=== PATIENT | male | born 1955 | race Caucasian/White ===

== ENCOUNTER 2017-11-25 12:45 | Inpatient (IN) | payer OTHER, BC ==
--- NOTE | 2017-11-25 13:03 | PDOC ---
History of Present Illness - General Chief Complaint: Chest Pain Stated Complaint: CHEST PAIN Time Seen by Provider: 11/25/17 13:02 History Source: Patient Exam Limitations: No Limitations - History of Present Illness Initial Comments: 11/25/17 14:10 62 YOM, with a significant past medical history of CAD, [place] (s/p multiple PCI ( [place], [facility]) on ASA and plavix), HTN, HLD, and neuropathy, who presents to the emergency department with, 6 days left sided chest pain. He describes his chest pain as pleuritic, achy, radiating to the left arm, ranking 8/10 with associated shortness of breath, nausea, and belching. He notes using his nitroglycerin spray each day with a 3 hour relief of the pain. The patient reports his symptoms to be similar to his previous episodes of a [place] which required hospitalization and stenting. He denies any palpitations, weakness, or tingling. He denies any recent fevers, chills, headache or dizziness. He denies any recent vomit, diarrhea or constipation. He denies any recent dysuria, frequency, urgency or hematuria. Allergies: Penicillin, cephalosporins, oxycodone HCl, Sulfa antibiotics, tetracyclines. Past surgical history: Cardiac stenting. Social History: Nonsmoker. Denies EtOH use and recreational drug use. Primary Care Physician: Dr. Selby [employer] Servicer Helper: Dr. Goldberg 11/25/17 15:18 Past History - Past Medical History Allergies/Adverse Reactions: Allergies Allergy/AdvReac Type Severity Reaction Status Date / Time Penicillins Allergy Severe Anaphylaxis Verified 11/25/17 14:01 Sulfa (Sulfonamide Allergy Severe Rash Verified 11/25/17 14:01 Antibiotics) Cephalosporins Allergy Verified 11/25/17 14:01 oxycodone HCl [From Percocet] Allergy Verified 11/25/17 14:01 Tetracyclines Allergy Verified 11/25/17 14:01 Home Medications: Ambulatory Orders Aspirin 325 mg PO DAILY tablet 09/03/13 Atorvastatin Calcium 40 mg PO DAILY tablet 09/03/13 Clopidogrel Bisulfate [Plavix] 75 mg PO DAILY #0 tablet 09/03/13 Isosorbide Mononitrate 90 mg PO DAILY 09/03/13 Ranolazine [Ranexa] 500 mg PO BID 08/09/14 Nitroglycerin [place] [Nitrolingual [place] -] 1 spray TL PRN PRN 11/25/17 Cancer: Yes (CAD) Cardiac Disorders: ([place] 02/05/13 WITH STENT) COPD: No GI Disorders: Yes (RECTAL MASS, CROHN'S) HTN: Yes - Surgical History Abdominal Surgery: Yes (RESECTION) Appendectomy: Yes Cardiac Surgery: Yes (CARDIAC CATH) - Immunization History Td Vaccination: Yes Immunization Up to Date: Yes - Suicide/Smoking/Psychosocial Hx Smoking Status: Yes Smoking History: Never smoked Have you smoked in the past 12 months: Yes Number of Cigarettes Smoked Daily: 10 If you are a former smoker, when did you quit?: FOUR MONTHS AGO Information on smoking cessation initiated: No Hx Alcohol Use: No Drug/Substance Use Hx: No Substance Use Type: None Review of Systems - Review of Systems Able to Perform ROS?: Yes Comments:: 11/25/17 14:10 Constitutional: no fevers or chills. HEENT: no headache or dizziness. CVS: +Chest pain. no syncope. Resp: +SOB. no cough or congestion. Abdomen: no abdominal pain, nausea or vomiting. MUSCULOSKELETAL: No joint pain and swelling. No neck or back pain. no leg swelling. SKIN: no redness or skin changes, no discharge, no rash. Hematologic: no easy bruising/bleeding. NEUROLOGIC: No headache, dizziness, LOC or altered mental status. No weakness, numbness or tingling. All other systems reviewed and negative, or as documented in HPI. *Physical Exam - Vital Signs Last Vital Signs Temp Pulse Resp BP Pulse Ox 97.8 F 68 14 108/69 98 11/25/17 12:48 11/25/17 14:18 11/25/17 14:18 11/25/17 14:18 11/25/17 14:18 - Physical Exam Comments: 11/25/17 14:11 General: Well appearing, awake and alert, NAD. HEENT: NCAT, PERRL, EOMI, clear conjunctiva, anicteric, moist mucous membranes , clear oropharynx, no oral lesions.. Neck: No JVD. neck supple, FROM Resp: CTAB, normal and even respirations, no respiratory distress CVS: RRR, no murmurs, 2+ peripheral pulses throughout, no peripheral edema Abdomen: soft, NTND, no peritoneal signs. Back: nontender, normal inspection and ROM MSK: no edema, DIOP x4, ROM intact. No clubbing or cyanosis. normal bulk and tone. Neuro: alert, oriented appropriately; no focal neurologic deficits Skin: warm and well perfused, cap refill <2 sec, normal color Heart Score/ECG Review - History History: Moderately suspicious - Electrocardiogram EKG: Normal - Age Age: 45-65 - Risk Factors Risk Factors Heart Score: Yes Hx Hypercholesterolemia, Yes Hx Hypertension, Yes Hx Obesity Based on the list above the patient has:: >/=3 risk factors or Hx atherosclerotic disease - Troponin Troponin: </= normal limit - Score Heart Score - Total: 4 - ECG Impressions Comment:: 11/25/17 13:59 EKG normal sinus rhythm, no interval abnormalities, narrow QRS, ST and T wave segments and morphology normal. Nonspecific T wave abnormalities in inferior leads, no depressions or elevations. ED Treatment Course - LABORATORY CBC & Chemistry Diagram: 11/25/17 13:15 11/25/17 13:40 - ADDITIONAL ORDERS Additional order review: Laboratory Results 11/25/17 11/25/17 13:40 13:40 PT with INR 12.70 INR 1.08 Sodium 139 Potassium 4.2 Chloride 106 Carbon Dioxide 27 Anion Gap 7 L BUN 17 Creatinine 0.9 Creat Clearance w eGFR > 60 Random Glucose 97 Calcium 8.6 Total Bilirubin 0.6 AST 17 ALT 26 Alkaline Phosphatase 100 Troponin I < 0.02 B-Natriuretic Peptide 42.8 Total Protein 6.4 Albumin 3.6 11/25/17 13:15 RBC 4.83 MCV 84.4 MCHC 32.8 RDW 13.7 MPV 8.6 Neutrophils % 55.5 Lymphocytes % 32.8 Monocytes % 9.3 Eosinophils % 1.9 Basophils % 0.5 - Medications Given in the ED: ED Medications Discontinued Medications Generic Name Dose Route Start Last Admin Trade Name Freq PRN Reason Stop Dose Admin Aspirin 324 mg 11/25/17 13:54 11/25/17 14:05 Asa - PO 11/25/17 13:55 324 mg ONCE ONE Administration Heparin Sodium (Porcine) 5,000 unit 11/25/17 14:14 11/25/17 14:45 Heparin - IVPUSH 11/25/17 14:15 5,000 unit ONCE ONE Administration Nitroglycerin 0.4 mg 11/25/17 13:54 11/25/17 14:05 Nitrostat - SL 11/25/17 13:55 0.4 mg ONCE ONE Administration Medical Decision Making - Medical Decision Making 11/25/17 13:57 Lopin 62 YOM with h/o CAD/[place] s/p multiple PCI ([place], [facility]) on ASA and plavix, HTN, HLD, neuropathy presenting with worsening left sided chest pain x 6 days, radiating to left arm. Started with feeling weak and unsteady. CP Nonexertional, alleviated by nitro spray. Compliant with meds including ASA and plavix. DDx chest pain: ACS, unstable angina, PUD, esophageal spasm, GERD, gastritis, costochondritis, pneumonia, pleurisy, pericarditis/myocarditis. dehydration, electrolyte/metabolic derangements. Vital signs reviewed, wnl. 10/04 chest pain, given nitro and ASA 325mg x1. laboratory results and imaging reviewed, basic labs and lytes wnl. higher risk CP with multiple PCI and recurrent anginal equiv symptoms. trop and bnp negative. EKG normal sinus rhythm, no interval abnormalities, narrow QRS, ST and T wave segments and morphology normal. Nonspecific T wave abnormalities in inferior leads, no depressions or elevations. - Spoke with Dr. Muir, content designer cards for Dr Yadav. agree with plan, treat as unstable angina, Heparin bolus and gtt. Dispo: Admit for unstable angina, serial trops/EKG and tele monitoring. Cardiac Cath to be arranged for tomorrow at [facility]. Discussed results and management plan with pt and family member at bedside, agree with impression and plan admit to Dr. Sola murphy PMD. 11/25/17 15:19 *DC/Admit/Observation/Transfer Diagnosis at time of Disposition: Chest pain - Discharge Dispostion Condition at time of disposition: Good Decision to Admit order: Yes Decision to Admit order Date/Time: Decision to Admit Order Category Date Time Status Decision to Admit to Hospital Routine Admission 11/25/17 13:55 Active - Referrals Referrals: Leo Selby MD [Primary Care Provider] - - Patient Instructions - Post Discharge Activity - Attestations Physician Attestion: 11/25/17 13:57
--- NOTE | 2017-11-25 13:33 | CON.CARD ---
Consult Consult Specialty:: Cardiology Referred by:: ER Reason for Consultation:: chest pain - History of Present Illness Chief Complaint: chest pain History of Present Illness: 62 year old man with a history of HTN, HLD, CAD s/p AWMI 01/2013 s/p PCI [place] followed by PCI LPDA 02/2013 at [facility], Chronic combined systolic/diastolic CHF , depression, anxiety, past smoker, with chronic angina, dyspnea, lightheadedness, has had multiple caths since then with instent restenosis and PCI at [facility] with Dr. Mariscal (last 2016 unknown vessel), who has been having several days of chest pain at rest relieved with nitrolingual spray. No palpitations or syncope. His pain is pressure like without radiation. Generally good exercise tolerance. ECHO 07/30/17 Interpretation Summary Acoustic windows are overall adequate. Normal left atrial size. Normal left ventricular size. Normal left ventricular ejection fraction. Estimated ejection fraction: 60 % Normal right atrial size. Normal right ventricular size. Normal right ventricular function. 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 Normal mitral valve. Minimal mitral valve regurgitation. Normal tricuspid valve. Minimal tricuspid valve regurgitation. Normal pulmonic valve. Normal sized aortic root. No pericardial effusion. Doppler pattern suggests prolonged relaxation and normal left atrial pressure (8 - 14mmHg). Event Monitor (07/31/17 to 08/06/2017): Normal sinus rhythm with an average heart rate of 64 BPM (1% in tachycardia and 40% in bradycardia). Occasional APCs and VPCs. No pauses. No other cardiac arrhythmia noted. The patient was monitored for 167:32 hours, of which 164:03 hours were usable. Average heart rate for the monitored period was 64 BPM. Tachycardia was present for 1% of the readable data; Bradycardia was present for 40% of the readable data. No Pause(s) noted of 3 seconds or longer. 10 manually-triggered recording(s) posted with symptoms including Chest pain, Other. The patient triggered events correlated with normal sinus rhythm and APCs. Holter 07/30/1707/12/2017 (24:00 hours recorded, 22:12 hours analyzed): Normal sinus rhythm with an average heart rate of 68 BPM (51-103 BPM). Occasional APCs. No significant pauses. No significant arrhythmias were recorded. 03/03/13 [facility] Cardiac catherization findings: LM non-obstructive, patent stent pLAD, mLAD 40%, LCX/ LPDA 70%lesion, FFR 0.87, IVUS 3.47m2 and 70% Stenosis, RCA non obstructive. Successful PCI of LPDA with 3.5x15 posts dilated with 3.75x12 with very good angiographic result. Ventriculogram:Apical hypokinesis otherwise, no regional wall motion. EF 55% - History Source History Provided By: Patient, Medical Record - Past Medical History Cardio/Vascular: Yes: CAD, HTN, Hyperlipdemia, [place], Other (s/p stent placement 3 weeks prior) - Alcohol/Substance Use Hx Alcohol Use: No - Smoking History Smoking history: Never smoked Have you smoked in the past 12 months: Yes Aproximately how many cigarettes per day: 10 If you are a former smoker, when did you quit?: FOUR MONTHS AGO Home Medications - Allergies Allergies/Adverse Reactions: Allergies Allergy/AdvReac Type Severity Reaction Status Date / Time Penicillins Allergy Severe Anaphylaxis Verified 11/25/17 14:01 Sulfa (Sulfonamide Allergy Severe Rash Verified 11/25/17 14:01 Antibiotics) Cephalosporins Allergy Verified 11/25/17 14:01 oxycodone HCl [From Percocet] Allergy Verified 11/25/17 14:01 Tetracyclines Allergy Verified 11/25/17 14:01 - Home Medications Home Medications: Ambulatory Orders Aspirin 325 mg PO DAILY tablet 09/03/13 Atorvastatin Calcium 40 mg PO DAILY tablet 09/03/13 Clopidogrel Bisulfate [Plavix] 75 mg PO DAILY #0 tablet 09/03/13 Isosorbide Mononitrate 90 mg PO DAILY 09/03/13 Ranolazine [Ranexa] 500 mg PO BID 08/09/14 Nitroglycerin [place] [Nitrolingual [place] -] 1 spray TL PRN PRN 11/25/17 Review of Systems - Review of Systems Constitutional: reports: No Symptoms Eyes: reports: No Symptoms HENT: reports: No Symptoms Neck: reports: No Symptoms Cardiovascular: reports: Chest Pain Respiratory: reports: No Symptoms Gastrointestinal: reports: No Symptoms Genitourinary: reports: No Symptoms Vital Signs: Vital Signs Temperature 97.8 F 11/25/17 12:48 Pulse Rate 84 11/25/17 12:48 Respiratory Rate 20 11/25/17 12:48 Blood Pressure 164/100 11/25/17 12:48 O2 Sat by Pulse Oximetry (%) 100 11/25/17 12:48 Constitutional: Yes: Well Nourished, No Distress, Calm Eyes: Yes: Conjunctiva Clear, EOM Intact HENT: Yes: Atraumatic, Normocephalic Neck: Yes: Supple, Trachea Midline Respiratory: Yes: CTA Bilaterally Gastrointestinal: Yes: Normal Bowel Sounds, Soft Renal/: Yes: WNL Cardiovascular: Yes: Regular Rate and Rhythm JVD: No Carotid Bruit: No PMI: Non-Displaced Heart Sounds: Yes: S1, S2 Musculoskeletal: Yes: WNL Extremities: Yes: WNL Edema: No Peripheral Pulses WNL: Yes Imaging - Results Chest X-ray: Pending EKG: Report Reviewed Assessment/Plan 62 year old man with a history of HTN, HLD, CAD s/p AWMI 01/2013 s/p PCI [place] followed by PCI LPDA 02/2013 at [facility], Chronic combined systolic/diastolic CHF , depression, anxiety, past smoker, with chronic angina, dyspnea, lightheadedness, has had multiple caths since then with instent restenosis and PCI at [facility] with Dr. Mariscal (last 2016 unknown vessel), who has been having several days of chest pain at rest relieved with nitrolingual spray. No palpitations or syncope. His pain is pressure like without radiation. 1. Unstable angina -- plan is for transfer tomorrow to [facility] for cardiac cath possible PCI. -start IV heparin follow PTT. -continue asa, plavix, imdur, ranexa and metoprolol 2. HTN- continue home medications. 3. chol--continue statin 4. CHF--resolved now normal EF at last echo.
[2017-11-25] MEDS ORDERED: ASPIRIN 81 MG CHEWABLE TABLETS PO ONE (13:54)
[2017-11-25] MEDS ORDERED: NITROGLYCERIN SUBLINGUAL 1/150 0.4 MG TAB SL ONE ×2 (13:54→20:08)
[2017-11-25 13:57] LABS: BASO % 0.5 % (0-2.0); EOS % 1.9 % (0-4.5); HEMATOCRIT 40.7 % (35.4-49); HEMOGLOBIN 13.3 GM/dL (11.7-16.9); LYMPH % 32.8 % (8-40); MCH 27.6 pg (25.7-33.7); MCHC 32.8 g/dl (32.0-35.9); MEAN CELL VOLUME 84.4 fl (80-96); MEAN PLT VOLUME 8.6 fl (7.5-11.1); MONO % 9.3 % (3.8-10.2); NEUT % 55.5 % (42.8-82.8); PLATELET COUNT 114 K/MM3 (134-434); RBC 4.83 M/mm3 (4.00-5.60); RDW 13.7 % (11.9-15.9); WHITE BLOOD COUNT 4.6 K/mm3 (4.0-10.0)
[2017-11-25] MEDS ORDERED: ASPIRIN 325 MG TABLET ONE (14:02)
[2017-11-25] MEDS ORDERED: NITROGLYCERIN SUBLINGUAL 1/150 0.4 MG TAB ONE (14:02)
[2017-11-25 14:11] LABS: INR 1.08 (0.83-1.09); PROTHROMBIN TIME (PATIENT) 12.7 SEC (9.7-13.0)
[2017-11-25] MEDS ORDERED: HEPARIN NA (PORCINE) 5,000 UNITS/ML 1ML VIAL IVPUSH ONE (14:14)
[2017-11-25] MEDS ORDERED: HEPARIN INFUSION - 500 ML IVPB SCH (14:15)
[2017-11-25] MEDS ORDERED: HEPARIN NA (PORCINE) 5,000 UNITS/ML 1ML VIAL ONE (14:28)
[2017-11-25] MEDS ORDERED: HEPARIN INFUSION - 25,000 UNITS/500 ML INFUS.BAG IVPB ONE (14:28)
[2017-11-25 14:36] LABS: ALBUMIN 3.6 g/dl (3.4-5.0); ALK PHOS 100 U/L (45-117); ANION GAP 7 MMOL/L (8-16); BILIRUBIN,TOTAL 0.6 mg/dL (0.2-1); BLOOD UREA NITROGEN 17 mg/dL (7-18); CALCIUM 8.6 mg/dL (8.5-10.1); CHLORIDE 106 mmol/L (98-107); CO2 27 mmol/L (21-32); CREATININE 0.9 mg/dL (0.55-1.3); GLUCOSE,RANDOM 97 mg/dL (74-106); N-TERMINAL BNP 42.8 pg/ml (5-125); POTASSIUM 4.2 mmol/L (3.5-5.1); SGOT/AST 17 U/L (15-37); SGPT/ALT 26 U/L (13-61); SODIUM 139 mmol/L (136-145); TOT PROT 6.4 g/dl (6.4-8.2)
[2017-11-25] MEDS ORDERED: HEPARIN - 25,000 UNIT in SODIUM CHLORIDE 495 ML IV ONE (14:45)
--- NOTE | 2017-11-25 15:42 | HP ---
CHIEF COMPLAINT: Chest pain PCP: Dr. Selby HISTORY OF PRESENT ILLNESS: 62 year-old man with a PMH significant for HTN, HLD, CAD s/p AWMI 01/2013 s/p PCI [place] followed by PCI LPDA 02/2013 at [facility], systolic/diastolic heart failure , chronic angina, depression, and anxiety. Presented to the ED today with a complaint of chest pain x 6 days. The pain occurs at rest, is pressure-like, does not radiate, and is relieved with nitrolingual spray. No palpitations or syncope. ER course was notable for: (1) BP 164/100 (2) Trop neg x 1 Recent Travel: No PAST MEDICAL HISTORY: Hypertension Hyperlipidemia Coronary artery disease s/p AWMI 01/2013 Systolic/diastolic heart failure Angina Depression/anxiety PAST SURGICAL HISTORY: Cardiac stenting (2013, [facility]; 2015, [facility]) Social History: Smoking: former Alcohol: no Drugs: no Family History: Allergies Penicillins Allergy (Severe, Verified 11/25/17 14:01) Anaphylaxis Sulfa (Sulfonamide Antibiotics) Allergy (Severe, Verified 11/25/17 14:01) Rash Cephalosporins Allergy (Verified 11/25/17 14:01) oxycodone HCl [From Percocet] Allergy (Verified 11/25/17 14:01) Tetracyclines Allergy (Verified 11/25/17 14:01) HOME MEDICATIONS: Home Medications Medication Instructions Recorded Aspirin 325 mg PO DAILY tablet 09/03/13 Atorvastatin Calcium 40 mg PO DAILY tablet 09/03/13 Clopidogrel Bisulfate [Plavix] 75 mg PO DAILY #0 tablet 09/03/13 Isosorbide Mononitrate 90 mg PO DAILY 09/03/13 Ranolazine [Ranexa] 500 mg PO BID 08/09/14 Metoprolol Succinate [Toprol Xl] 50 mg PO BID 11/25/17 Nitroglycerin [place] [Nitrolingual 1 spray TL PRN PRN 11/25/17 [place] -] REVIEW OF SYSTEMS CONSTITUTIONAL: Absent: fever, chills, diaphoresis, generalized weakness, malaise, loss of appetite, weight change HEENT: Absent: rhinorrhea, nasal congestion, throat pain, throat swelling, difficulty swallowing, mouth swelling, ear pain, eye pain, visual changes CARDIOVASCULAR: +chest pain at rest, SOB Absent: syncope, palpitations, irregular heart rate, lightheadedness, peripheral edema RESPIRATORY: Absent: cough, shortness of breath, dyspnea with exertion, orthopnea, wheezing, stridor, hemoptysis GASTROINTESTINAL: Absent: abdominal pain, abdominal distension, nausea, vomiting, diarrhea, constipation, melena, hematochezia GENITOURINARY: Absent: dysuria, frequency, urgency, hesitancy, hematuria, flank pain, genital pain MUSCULOSKELETAL: Absent: myalgia, arthralgia, joint swelling, back pain, neck pain SKIN: Absent: rash, itching, pallor HEMATOLOGIC/IMMUNOLOGIC: Absent: easy bleeding, easy bruising, lymphadenopathy, frequent infections ENDOCRINE: Absent: unexplained weight gain, unexplained weight loss, heat intolerance, cold intolerance NEUROLOGIC: Absent: headache, focal weakness or paresthesias, dizziness, unsteady gait, seizure, mental status changes, bladder or bowel incontinence PSYCHIATRIC: Absent: anxiety, depression, suicidal or homicidal ideation, hallucinations. PHYSICAL EXAMINATION Vital Signs - 24 hr 11/25/17 11/25/17 12:48 14:18 Temperature 97.8 F Pulse Rate 84 Pulse Rate [ 68 Apical] Respiratory 20 14 Rate Blood Pressure 164/100 Blood Pressure 108/69 [Right Arm] O2 Sat by Pulse 100 98 Oximetry (%) GENERAL: Awake, alert, and fully oriented, in no acute distress. HEAD: Normal with no signs of trauma. EYES: Pupils equal, round and reactive to light, extraocular movements intact, sclera anicteric, conjunctiva clear. No lid lag. EARS, NOSE, THROAT: Ears normal, nares patent, oropharynx clear without exudates. Moist mucous membranes. NECK: Normal range of motion, supple without lymphadenopathy, JVD, or masses. LUNGS: Breath sounds equal, clear to auscultation bilaterally. No wheezes, and no crackles. No accessory muscle use. HEART: Regular rate and rhythm, normal S1 and S2 ABDOMEN: Soft, nontender, not distended, normoactive bowel sounds, no guarding, no rebound UPPER EXTREMITIES: 2+ pulses, warm, well-perfused. No cyanosis. No clubbing. No peripheral edema. LOWER EXTREMITIES: 2+ pulses, warm, well-perfused. No calf tenderness. No peripheral edema. NEUROLOGICAL: Cranial nerves II-XII intact. Normal speech. Laboratory Results - last 24 hr 11/25/17 11/25/17 11/25/17 13:15 13:40 13:40 WBC 4.6 RBC 4.83 Hgb 13.3 Hct 40.7 MCV 84.4 MCH 27.6 MCHC 32.8 RDW 13.7 Plt Count 114 L MPV 8.6 Absolute Neuts (auto) 2.5 Neutrophils % 55.5 Lymphocytes % 32.8 Monocytes % 9.3 Eosinophils % 1.9 Basophils % 0.5 Nucleated RBC % 0 PT with INR 12.70 INR 1.08 Sodium 139 Potassium 4.2 Chloride 106 Carbon Dioxide 27 Anion Gap 7 L BUN 17 Creatinine 0.9 Creat Clearance w eGFR > 60 Random Glucose 97 Calcium 8.6 Total Bilirubin 0.6 AST 17 ALT 26 Alkaline Phosphatase 100 Troponin I < 0.02 B-Natriuretic Peptide 42.8 Total Protein 6.4 Albumin 3.6 ASSESSMENT/PLAN 62 year-old man with a PMH significant for HTN, HLD, CAD s/p AWMI 01/2013 s/p PCI [place] followed by PCI LPDA 02/2013 at [facility], systolic/diastolic heart failure , chronic angina, depression, and anxiety. Presented to the ED today with a complaint of chest pain x 6 days. Placed on observation for unstable angina. Unstable angina CAD s/p multiple stents --troponins neg x 2, third pending --seen and evaluated by cardiology Dr. Muir, plan is to transfer tomorrow for cardiac cath --heparin drip --continue ASA, Plavix, Imdur, Ranexa, Toprol XL Hypertension --continue ToprolXL Hyperlipidemia --continue atorvastatin Systolic and diastolic heart failure, resolved --per Dr. Muir, normal EF at last echo Depression/anxiety --not on meds DVT prophylaxis: on heparin drip, monitor PTT Visit type - Emergency Visit Emergency Visit: Yes ED Registration Date: 11/25/17 Care time: The patient presented to the Emergency Department on the above date and was hospitalized for further evaluation of their emergent condition. - New Patient This patient is new to me today: Yes Date on this admission: 11/25/17 - Critical Care Critical Care patient: No
[2017-11-25] MEDS ORDERED: HEPARIN INFUSION - 25,000 UNITS/500 ML INFUS.BAG IVPB SCH ×2 (20:00→20:45)
[2017-11-25] MEDS ORDERED: HEPARIN NA (PORCINE) 5,000 UNITS/ML 1ML VIAL IVPUSH PRN ×2 (20:00)
[2017-11-25] MEDS ORDERED: NITROGLYCERIN SUBLINGUAL 1/150 0.4 MG TAB SL STA (20:19)
[2017-11-25] MEDS ORDERED: ATORVASTATIN CA 40 MG TABLET (FP) PO SCH (22:00)
[2017-11-25] MEDS ORDERED: GABAPENTIN 100 MG CAPSULE (FP) ONE (23:29)
[2017-11-25] MEDS ORDERED: ATORVASTATIN CA 40 MG TABLET (FP) ONE (23:29)
[2017-11-25] MEDS: RANOLAZINE E.R. 500 MG TABLET (FP) PO SCH (23:47)
[2017-11-25] MEDS: GABAPENTIN 300 MG CAPSULE (FP) PO SCH (23:47)
[2017-11-26 03:59] VITALS: BMI 34.7
[2017-11-26] MEDS: GABAPENTIN 300 MG CAPSULE (FP) PO SCH (06:10)
[2017-11-26] MEDS ORDERED: PANTOPRAZOLE 40 MG TABLET (FP) PO SCH (07:00)
[2017-11-26 07:11] LABS: BASO % 0.4 % (0-2.0); EOS % 1.6 % (0-4.5); HEMATOCRIT 40.2 % (35.4-49); HEMOGLOBIN 13.3 GM/dL (11.7-16.9); LYMPH % 32.7 % (8-40); MCH 27.9 pg (25.7-33.7); MEAN CELL VOLUME 84.6 fl (80-96); MEAN PLT VOLUME 9.6 fl (7.5-11.1); MONO % 9.2 % (3.8-10.2); NEUT % 56.1 % (42.8-82.8); PLATELET COUNT 106 K/MM3 (134-434); RBC 4.75 M/mm3 (4.00-5.60); RDW 13.6 % (11.9-15.9); WHITE BLOOD COUNT 6.2 K/mm3 (4.0-10.0)
[2017-11-26] MEDS ORDERED: PT OWN MED DRAWER 7, Y5N ONE ×2 (08:04→10:05)
[2017-11-26 08:47] LABS: ALBUMIN 3.4 g/dl (3.4-5.0); ALK PHOS 92 U/L (45-117); ANION GAP 6 MMOL/L (8-16); BILIRUBIN,TOTAL 0.6 mg/dL (0.2-1); BLOOD UREA NITROGEN 19 mg/dL (7-18); CALCIUM 8.3 mg/dL (8.5-10.1); CHLORIDE 103 mmol/L (98-107); CO2 29 mmol/L (21-32); CREATININE 1.1 mg/dL (0.55-1.3); GLUCOSE,RANDOM 111 mg/dL (74-106); MAGNESIUM 1.6 mg/dL (1.8-2.4); PHOSPHOROUS 3.6 mg/dL (2.5-4.9); SGOT/AST 15 U/L (15-37); SGPT/ALT 24 U/L (13-61); SODIUM 138 mmol/L (136-145); TOT PROT 6.1 g/dl (6.4-8.2)
[2017-11-26] MEDS ORDERED: ISOSORBIDE MONONITRATE 30 MG TAB.SR.24H (FP) PO SCH (10:00)
[2017-11-26] MEDS ORDERED: PATIENT'S OWN MEDICATION (NON-FORMULARY) (Bupropion Hcl [Wellbutrin Xl] 300 MG) PO SCH (10:00)
[2017-11-26] MEDS ORDERED: ASPIRIN 325 MG TABLET PO SCH (10:00)
[2017-11-26] MEDS ORDERED: CLOPIDOGREL BISULFATE 75 MG TABLET (FP) PO SCH (10:00)
[2017-11-26] MEDS ORDERED: FLUoxetine HCL 10 MG CAPSULE (FP) PO SCH (10:00)
[2017-11-26] MEDS: RANOLAZINE E.R. 500 MG TABLET (FP) PO SCH (10:03)
--- NOTE | 2017-11-26 10:11 | PN ---
Progress Note, Physician Chief Complaint: Had cp last night tele neg History of Present Illness: 62 year old man with a history of HTN, HLD, CAD s/p AWMI 01/2013 s/p PCI [place] followed by PCI LPDA 02/2013 at [facility], Chronic combined systolic/diastolic CHF , depression, anxiety, past smoker, with chronic angina, dyspnea, lightheadedness, has had multiple caths since then with instent restenosis and PCI at [facility] with Dr. Mariscal (last 2016 unknown vessel), who has been having several days of chest pain at rest relieved with nitrolingual spray. No palpitations or syncope. His pain is pressure like without radiation. Generally good exercise tolerance. ECHO 07/30/17 Interpretation Summary Acoustic windows are overall adequate. Normal left atrial size. Normal left ventricular size. Normal left ventricular ejection fraction. Estimated ejection fraction: 60 % Normal right atrial size. Normal right ventricular size. Normal right ventricular function. 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 Normal mitral valve. Minimal mitral valve regurgitation. Normal tricuspid valve. Minimal tricuspid valve regurgitation. Normal pulmonic valve. Normal sized aortic root. No pericardial effusion. Doppler pattern suggests prolonged relaxation and normal left atrial pressure (8 - 14mmHg). Event Monitor (07/31/17 to 08/06/2017): Normal sinus rhythm with an average heart rate of 64 BPM (1% in tachycardia and 40% in bradycardia). Occasional APCs and VPCs. No pauses. No other cardiac arrhythmia noted. The patient was monitored for 167:32 hours, of which 164:03 hours were usable. Average heart rate for the monitored period was 64 BPM. Tachycardia was present for 1% of the readable data; Bradycardia was present for 40% of the readable data. No Pause(s) noted of 3 seconds or longer. 10 manually-triggered recording(s) posted with symptoms including Chest pain, Other. The patient triggered events correlated with normal sinus rhythm and APCs. Holter 07/30/1707/12/2017 (24:00 hours recorded, 22:12 hours analyzed): Normal sinus rhythm with an average heart rate of 68 BPM (51-103 BPM). Occasional APCs. No significant pauses. No significant arrhythmias were recorded. 03/03/13 [facility] Cardiac catherization findings: LM non-obstructive, patent stent pLAD, mLAD 40%, LCX/ LPDA 70%lesion, FFR 0.87, IVUS 3.47m2 and 70% Stenosis, RCA non obstructive. Successful PCI of LPDA with 3.5x15 posts dilated with 3.75x12 with very good angiographic result. Ventriculogram:Apical hypokinesis otherwise, no regional wall motion. EF 55% - Current Medication List Current Medications: Active Medications Aspirin (Asa -) 325 mg PO DAILY [facility] Last Admin: 11/26/17 10:03 Dose: 325 mg Atorvastatin Calcium (Lipitor -) 40 mg PO HS [facility] Last Admin: 11/25/17 23:47 Dose: 40 mg Bupropion HCl (Wellbutrin Xl -) 300 mg PO DAILY [facility] Clopidogrel Bisulfate (Plavix -) 75 mg PO DAILY [facility] Last Admin: 11/26/17 10:03 Dose: 75 mg Fluoxetine HCl (Prozac -) 10 mg PO DAILY [facility] Gabapentin (Neurontin -) 300 mg PO TID [facility] Last Admin: 11/26/17 06:10 Dose: 300 mg Heparin Sodium (Porcine) (Heparin -) 1,000 unit IVPUSH PRN PRN PRN Reason: Heparin Heparin Sodium (Porcine) (Heparin -) 5,000 unit IVPUSH PRN PRN PRN Reason: Heparin Heparin Sodium/Dextrose (Heparin Infusion -) 25,000 units in 500 mls @ 20 mls/ hr IVPB TITR [facility]; Protocol Last Titration: 11/26/17 04:01 Dose: 1,000 units/hr, 20 mls/hr Isosorbide Mononitrate (Imdur -) 90 mg PO DAILY [facility] Last Admin: 11/26/17 10:03 Dose: 90 mg Metoprolol Succinate (Toprol Xl -) 50 mg PO BID [facility] Last Admin: 11/26/17 10:03 Dose: 50 mg Pantoprazole Sodium (Protonix -) 40 mg PO AM [facility] Last Admin: 11/26/17 06:10 Dose: 40 mg Ranolazine (Ranexa -) 500 mg PO BID [facility] Last Admin: 11/26/17 10:03 Dose: 500 mg - Objective Vital Signs: Vital Signs Temperature 97.6 F 11/26/17 05:53 Pulse Rate 56 L 11/26/17 05:53 Respiratory Rate 20 11/26/17 05:53 Blood Pressure 115/71 11/26/17 05:53 O2 Sat by Pulse Oximetry (%) 97 11/26/17 02:35 Constitutional: Yes: No Distress, Calm Eyes: Yes: Conjunctiva Clear, EOM Intact HENT: Yes: Atraumatic, Normocephalic Neck: Yes: Supple, Trachea Midline Cardiovascular: Yes: Regular Rate and Rhythm Respiratory: Yes: CTA Bilaterally Gastrointestinal: Yes: Normal Bowel Sounds, Soft Musculoskeletal: Yes: WNL Extremities: Yes: WNL Edema: No Peripheral Pulses WNL: Yes Labs: CBC, BMP 11/26/17 06:00 11/26/17 06:00 INR, PTT INR 1.08 (0.83-1.09) 11/25/17 13:40 Assessment/Plan 62 year old man with a history of HTN, HLD, CAD s/p AWMI 01/2013 s/p PCI [place] followed by PCI LPDA 02/2013 at [facility], Chronic combined systolic/diastolic CHF , depression, anxiety, past smoker, with chronic angina, dyspnea, lightheadedness, has had multiple caths since then with instent restenosis and PCI at [facility] with Dr. Mariscal (last 2016 unknown vessel), who has been having several days of chest pain at rest relieved with nitrolingual spray. No palpitations or syncope. His pain is pressure like without radiation. 1. Unstable angina -- plan is for transfer tomorrow to [facility] for cardiac cath possible PCI. -start IV heparin follow PTT. -continue asa, plavix, imdur, ranexa and metoprolol 2. HTN- continue home medications. 3. chol--continue statin 4. CHF--resolved now normal EF at last echo.
--- NOTE | 2017-11-26 10:18 | DS ---
Physical Exam: SUBJECTIVE: Patient seen and examined OBJECTIVE: Vital Signs Period Temp Pulse Resp BP Sys/Velásquez Pulse Ox Last 24 Hr 97.6 F-98.5 F 56-84 12-20 108-164/69-100 97-100 PHYSICAL EXAM GENERAL: The patient is awake, alert, and fully oriented, in no acute distress. HEAD: Normal with no signs of trauma. EYES: PERRL, extraocular movements intact, sclera anicteric, conjunctiva clear. ENT: Ears normal, nares patent, oropharynx clear without exudates, moist mucous membranes. NECK: Trachea midline, full range of motion, supple. LUNGS: Breath sounds equal, clear to auscultation bilaterally, no wheezes, no crackles, no accessory muscle use. HEART: Regular rate and rhythm, S1, S2 without murmur, rub or gallop. ABDOMEN: Soft, nontender, nondistended, normoactive bowel sounds, no guarding, no rebound, no hepatosplenomegaly, no masses. EXTREMITIES: 2+ pulses, warm, well-perfused, no edema. NEUROLOGICAL: Cranial nerves II through XII grossly intact. Normal speech, gait not observed. PSYCH: Normal mood, normal affect. SKIN: Warm, dry, normal turgor, no rashes or lesions noted. LABS Laboratory Results - last 24 hr 11/25/17 11/25/17 11/25/17 13:15 13:40 13:40 WBC 4.6 RBC 4.83 Hgb 13.3 Hct 40.7 MCV 84.4 MCH 27.6 MCHC 32.8 RDW 13.7 Plt Count 114 L MPV 8.6 Absolute Neuts (auto) 2.5 Neutrophils % 55.5 Lymphocytes % 32.8 Monocytes % 9.3 Eosinophils % 1.9 Basophils % 0.5 Nucleated RBC % 0 PT with INR 12.70 INR 1.08 PTT (Actin FS) Sodium 139 Potassium 4.2 Chloride 106 Carbon Dioxide 27 Anion Gap 7 L BUN 17 Creatinine 0.9 Creat Clearance w eGFR > 60 Random Glucose 97 Calcium 8.6 Phosphorus Magnesium Total Bilirubin 0.6 AST 17 ALT 26 Alkaline Phosphatase 100 Troponin I < 0.02 B-Natriuretic Peptide 42.8 Total Protein 6.4 Albumin 3.6 11/25/17 11/25/17 11/26/17 20:49 20:49 01:39 WBC RBC Hgb Hct MCV MCH MCHC RDW Plt Count MPV Absolute Neuts (auto) Neutrophils % Lymphocytes % Monocytes % Eosinophils % Basophils % Nucleated RBC % PT with INR INR PTT (Actin FS) 47.6 H Sodium Potassium Chloride Carbon Dioxide Anion Gap BUN Creatinine Creat Clearance w eGFR Random Glucose Calcium Phosphorus Magnesium Total Bilirubin AST ALT Alkaline Phosphatase Troponin I < 0.02 < 0.02 B-Natriuretic Peptide Total Protein Albumin 11/26/17 11/26/17 11/26/17 03:15 06:00 06:00 WBC 6.2 RBC 4.75 Hgb 13.3 Hct 40.2 MCV 84.6 MCH 27.9 MCHC 33.0 RDW 13.6 Plt Count 106 L MPV 9.6 D Absolute Neuts (auto) 3.5 Neutrophils % 56.1 Lymphocytes % 32.7 Monocytes % 9.2 Eosinophils % 1.6 Basophils % 0.4 Nucleated RBC % 0 PT with INR INR PTT (Actin FS) 52.1 H Sodium 138 Potassium 4.0 Chloride 103 Carbon Dioxide 29 Anion Gap 6 L BUN 19 H Creatinine 1.1 Creat Clearance w eGFR > 60 Random Glucose 111 H Calcium 8.3 L Phosphorus 3.6 Magnesium 1.6 L Total Bilirubin 0.6 AST 15 ALT 24 Alkaline Phosphatase 92 Troponin I B-Natriuretic Peptide Total Protein 6.1 L Albumin 3.4 HOSPITAL COURSE: Date of Admission:11/25/17 Date of Discharge: 11/26/17 Discharge Summary Reason For Visit: UNSTABLE ANGINA PECTORIS Current Active Problems Chest pain (Acute) Condition: Guarded - Instructions Referrals: Leo Selby MD [Primary Care Provider] - Disposition: TRANSFER ACUTE CARE/OTHER HOSP - Home Medications Comprehensive Discharge Medication List: Ambulatory Orders Aspirin 325 mg PO DAILY tablet 09/03/13 Atorvastatin Calcium 40 mg PO DAILY tablet 09/03/13 Clopidogrel Bisulfate [Plavix] 75 mg PO DAILY #0 tablet 09/03/13 Isosorbide Mononitrate 90 mg PO DAILY 09/03/13 Ranolazine [Ranexa] 1,000 mg PO BID 08/09/14 Metoprolol Succinate [Toprol Xl] 50 mg PO BID 11/25/17 Bupropion HCl [Wellbutrin Xl -] 300 mg PO DAILY tab.sr.24h 11/26/17
--- NOTE | 2017-11-26 10:43 | EKG ---
Test Reason : Blood Pressure : / mmHG Vent. Rate : 067 BPM Atrial Rate : 067 BPM P-R Int : 158 ms QRS Dur : 102 ms QT Int : 426 ms P-R-T Axes : 039 009 033 degrees QTc Int : 450 ms NORMAL SINUS RHYTHM CANNOT RULE OUT ANTERIOR INFARCT (CITED ON OR BEFORE 25-NOV-2017) ABNORMAL ECG WHEN COMPARED WITH ECG OF 25-NOV-2017 12:46, NO SIGNIFICANT CHANGE WAS FOUND Confirmed by Jose Angel Muir MD ([id number]) on 11/26/2017 10:42:45 AM Referred By: Confirmed By:Jose Angel Muir MD
--- NOTE | 2017-11-26 10:44 | EKG ---
Test Reason : Blood Pressure : / mmHG Vent. Rate : 077 BPM Atrial Rate : 077 BPM P-R Int : 158 ms QRS Dur : 100 ms QT Int : 412 ms P-R-T Axes : 039 006 031 degrees QTc Int : 466 ms NORMAL SINUS RHYTHM LOW VOLTAGE QRS CANNOT RULE OUT ANTERIOR INFARCT , AGE UNDETERMINED ABNORMAL ECG NO PREVIOUS ECGS AVAILABLE Confirmed by Jose Angel Muir MD ([id number]) on 11/26/2017 10:44:44 AM Referred By: Confirmed By:Jose Angel Muir MD
[2017-11-26 10:49] VITALS: BP 123/73; PULSE 57; TEMP 97.5
== END 2017-11-26 10:37 | disposition short-term general hospital (02) | DRG 303 ==
LOC: JER 12:45 → JERBED 13:55 → J4S 11-26 02:22
PROVIDERS: ADMIT Hospitalist; ATTEND Nurse Practitioner Family
DX: I25.110 Atherosclerotic heart disease of native coronary artery with unstable angina pectoris (principal); I50.42 Chronic combined systolic (congestive) and diastolic (congestive) heart failure; R07.89 Other chest pain; I25.2 Old myocardial infarction; I10 Essential (primary) hypertension; E78.5 Hyperlipidemia, unspecified; I11.0 Hypertensive heart disease with heart failure; F41.8 Other specified anxiety disorders; Z87.891 Personal history of nicotine dependence; Z88.0 Allergy status to penicillin; Z95.5 Presence of coronary angioplasty implant and graft
CPT/HCPCS: 36415; 71045-TC-FY; 80053; 83735; 83880; 84100; 84484; 85025; 85610; 85730; 93005; 93010; 99285-25; J1644

== ENCOUNTER 2021-05-10 09:21 | Emergency (ER) | payer OTHER, BC ==
[2021-05-10] MEDS ORDERED: FAMOTIDINE 20 MG/50 ML IVPB 20 MG in PREMIX 50 IVPB ONE (09:34)
[2021-05-10] MEDS ORDERED: KETOROLAC TROMETHAMINE 30 MG/1 ML VIAL IVPUSH ONE (09:34)
[2021-05-10] MEDS ORDERED: SODIUM CHLORIDE 0.9% 500 ML INFUS.BAG IV ONE (09:34)
[2021-05-10] MEDS ORDERED: ONDANSETRON 4 MG/2 ML VIAL IVPB ONE (09:34)
[2021-05-10] MEDS ORDERED: MAG HYDROX/AL HYDROX/SIMETH -MYLANTA- ORAL SUSPENSION PO ONE (09:34)
[2021-05-10 09:35] VITALS: TEMP 98.5; BMI 33.2
[2021-05-10] MEDS ORDERED: FAMOTIDINE 20 MG/50 ML IVPB 20 MG/50 ML MG IVPB ONE (09:44)
[2021-05-10] MEDS ORDERED: ONDANSETRON 4 MG/2 ML VIAL ONE (09:44)
[2021-05-10] MEDS ORDERED: KETOROLAC TROMETHAMINE 30 MG/1 ML VIAL ONE (09:44)
[2021-05-10] MEDS ORDERED: MAG HYDROX/AL HYDROX/SIMETH 30 ML UNIT-DOSE CUP ONE (09:44)
[2021-05-10 10:29] LABS: ALBUMIN 3.7 g/dl (3.4-5.0); BILIRUBIN,TOTAL 1.6 mg/dl (0.2-1); CALCIUM 8.7 mg/dl (8.5-10); CREATININE 1.2 mg/dl (0.55-1.3); MAGNESIUM 1.4 mg/dL (1.8-2.4); PHOSPHOROUS 2.4 mg/dl (2.5-4.9); TOT PROT 6.4 g/dl (6.4-8.2)
[2021-05-10 10:42] VITALS: PULSE 79
[2021-05-10] MEDS ORDERED: POTASSIUM CHLORIDE TABS 20 MEQ TABLET.ER (FP) PO ONE ×2 (11:11→11:29)
[2021-05-10 11:20] LABS: BASO % 0.4 % (0-2.0); EOS % 0.6 % (0-4.5); HEMOGLOBIN 13.7 GM/dL (11.7-16.9); LYMPH % 28.5 % (8-40); MCH 29.4 pg (25.7-33.7); MCHC 34.2 g/dl (32.0-35.9); MEAN CELL VOLUME 85.7 fl (80-96); MEAN PLT VOLUME 8.8 fl (7.5-11.1); MONO % 7.2 % (3.8-10.2); NEUT % 63.3 % (42.8-82.8); PLATELET COUNT 100 10^3/uL (134-434); RBC 4.67 M/mm3 (4.00-5.60); RDW 13.9 % (11.9-15.9); WHITE BLOOD COUNT 5.2 K/mm3 (4.0-10.0)
[2021-05-10 14:58] LABS: N-TERMINAL BNP 122.5 pg/ml (5-125)
[2021-05-10 15:16] VITALS: BP 106/66
[2021-05-11 12:10] LABS: SARS-CoV-2 NAA Not Detected (Not Detected)
== END 2021-05-10 15:30 | disposition home or self-care (01) ==
LOC: FER 09:21
PROC: 3E033GC Introduction of Other Therapeutic Substance into Peripheral Vein, Percutaneous Approach (ICD-10-PCS; principal; 2021-05-10)
PROC: 3E0333Z Introduction of Anti-inflammatory into Peripheral Vein, Percutaneous Approach (ICD-10-PCS; 2021-05-10)
PROC: 3E033GC Introduction of Other Therapeutic Substance into Peripheral Vein, Percutaneous Approach (ICD-10-PCS; 2021-05-10)
DX: K52.9 Noninfective gastroenteritis and colitis, unspecified (principal)
CPT/HCPCS: 36415; 71045-TC-FY; 80053; 83690; 83735; 83880; 84100; 84484; 85025; 87804; 93005; 99285-25; C9803; U0003; U0005